=== PATIENT | female | born 1990 | race Caucasian/White ===

== ENCOUNTER 2019-06-29 23:48 | Emergency (ER) | payer MEDICAID ==
[~2019-06-29] VITALS: Ht 172.7 cm; Wt 73.9 kg
[2019-06-29 23:50] VITALS: BP 131/90
--- NOTE | 2019-06-29 23:53 | NUR ---
TO [facility] A/W [facility] , AMBULATORY
--- NOTE | 2019-06-30 01:33 | NUR ---
Sonny canas in [facility] - 06/30/19 at 0134 by FIDENCIO PT TAKEN TO BED 5
--- NOTE | 2019-06-30 01:33 | NUR ---
PT AMBULATED TO ED BED 05
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
[2019-06-30] MEDS ORDERED: MORPHINE SULFATE 4 MG/ML SYR IM ONE (02:20)
[2019-06-30] MEDS ORDERED: AMPICILLIN/SULBACTAM 3 GM in NACL 0.9% 100 ML IV ONE (03:25)
[2019-06-30] MEDS ORDERED: LIDOCAINE 1% 500 MG/50 ML VIAL INJ SCH (03:25)
[2019-06-30] MEDS ORDERED: AMPICILLIN/SULBACTAM 3 GM VIAL ONE (03:43)
[2019-06-30] MEDS ORDERED: LIDOCAINE MPF 1% - 5 mL VIAL 5 ML ONE ×3 (03:44→05:17)
--- NOTE | 2019-06-30 04:12 | NUR ---
Dr. Hairston examining patient.
[2019-06-30 07:01] VITALS: BP 126/73
--- NOTE | 2019-06-30 07:03 | NUR ---
PT DISCHARGED WITH PAPERWORK. RX NORCO, AUGMENTIN. EDUCATED PT REGARDING MEDICATIONS AND S/E. EDUCATED PT REGARDING D/C DIAGNOSIS. PT VERBALIZED UNDERSTANDING OF TEACHING. TOLD PT TO FOLLOW UP WITH PCP AND WHEN TO RETURN TO ED. PT VSS. ALL QUESTIONS ANSWERED.
== END 2019-06-30 07:03 | disposition home or self-care (01) ==
LOC: MED 23:48
DX: S62.637A Displaced fracture of distal phalanx of left little finger, initial encounter for closed fracture (principal); S61.315A Laceration without foreign body of left ring finger with damage to nail, initial encounter; Y04.1XXA Assault by human bite, initial encounter; Y93.89 Activity, other specified; Y92.89 Other specified places as the place of occurrence of the external cause; Y99.8 Other external cause status
CPT/HCPCS: 11760; 73140; 96365; 96375; 99284; J0295; J2001; J2270; 99283